=== PATIENT | female | born 1950 | race Caucasian/White ===

== ENCOUNTER → 2018-03-02 11:13 | Outpatient (CLI) | payer MEDICARE, OTHER, SELFPAY ==
--- NOTE | 2018-03-02 | DI.NM.S_ITS ---
PROCEDURE: NM PUL PERF VENT MIR DIF W IMAGE RADIOPHARMACEUTICAL: 39.5 mCi Tc-99m labeled DTPA aerosol and 9.8 mCi technetium 99m labeled MAA intravenously. INDICATIONS: PREOPERATIVE TESTING/HISTORY OF LUNG CANCER TECHNIQUE: After the intravenous administration of radiotracer, imaging of both lungs acquired in the anterior and posterior projections. Quantitative determination of tracer uptake was performed of the upper, middle, and lower lungs separately in both projections, with total average uptake derived from the geometric mean. COMPARISON: None. FINDINGS: Posterior perfusion over the upper/middle/lower thirds of the lungs bilaterally yields left versus right percent values of 11.5 versus 6.3, 28.8 versus 21.6 and 15.3 versus 16.4, respectively. Anterior perfusion over the upper/middle/lower thirds yields left versus right percent values of 18.4 versus 10.8, 27.0 versus 28.7, and 7.3 versus 7.9, respectively. Geometric mean over the upper/middle/lower thirds of the lungs bilaterally yields left versus right percent values of 15.0 versus 8.6, 28.0 versus 25.7 and 10.8 versus 11.8, respectively. Posterior ventilation over the upper/middle/lower thirds of the lungs bilaterally yields left versus right percent values of 10.3 versus 8.5, 23.2 versus 23.5, and 18.3 versus 18.7, respectively. Anterior ventilation over the upper/middle/lower thirds of the lungs bilaterally yields left versus right percent values of 14.7 versus 14.9, 21.6 versus 31.7 and 7.9 versus 9.8, respectively. Geometric mean or the upper/middle/lower thirds of the lungs bilaterally henning left versus right percent values of 12.5 versus 11.3, 22.4 versus 28.4, and 11.3 versus 14.1, respectively. IMPRESSION: There is asymmetric perfusion and ventilation over the lungs bilaterally with left greater than right perfusion differential of 53.9% on the left versus 46.1% on the right overall, with right greater than left ventilation differential of 46.3% on the left versus 53.7% on the right overall. Dictated by: Wan Morrison M.D. on 03/02/2018 at 16:03 Approved by: Wan Morrison M.D. on 03/02/2018 at 16:26
--- NOTE | 2018-03-06 07:40 | PM.PFT.1 ---
Pulmonary Function Test Referral & Results Date Patient Seen: 03/02/18 Indication: Lung cancer Results: The spirometry demonstrates an FVC of 2.13 L which is 66% of predicted. The FEV1 was measured at 1.72 L which is 70% of predicted. The FEV1/FVC ratio was 81 which is 104% of predicted. Following the administration of bronchodilator there was no appreciable change. Lung volumes show an SVC of 2.14 L which is 71% of predicted. The diffusing capacity was measured at 16.99 which is 68% of predicted. No hemoglobin value was provided, so no correction for potential anemia could be made, if appropriate. The maximum voluntary ventilation was reduced Interpretation: This study demonstrates moderate restrictive lung disease based on reduction FEV1 without evidence of benefit following bronchodilator There is also moderate restrictive lung disease based on reduction SVC The reduction in diffusing capacity is 60% of predicted also suggest moderate disease at the capillary alveolar level. Clinical correlation suggested
== END ==
PROVIDERS: PCP Family Medicine
DX: C34.90 Malignant neoplasm of unspecified part of unspecified bronchus or lung (principal); R93.89 Abnormal findings on diagnostic imaging of other specified body structures; Z01.818 Encounter for other preprocedural examination
CPT/HCPCS: 78598; 94010; 94060; 94726; 94729; A9539; A9540

== ENCOUNTER → 2020-10-13 14:53 | Outpatient (CLI) | payer MEDICARE, OTHER, SELFPAY ==
--- NOTE | 2020-10-13 | DI.US.S_ITS ---
PROCEDURE: US RENAL COMPLETE INDICATIONS: Dysuria TECHNIQUE: Real-time scanning was performed of the kidneys and bladder, with image documentation. COMPARISON: None. FINDINGS: Kidneys: Kidneys are normal in size. Right kidney measures 10.4 cm long; left kidney measures 10.7 cm long. Right renal cortical thickness is 1.8 cm; left renal cortical thickness is 1.8 cm. Renal cortical echotexture is normal. No hydronephrosis or nephrolithiasis. No suspicious solid mass lesions. Bladder: Pre-void bladder volume is 42 mL. Post-void residual is 0 mL. Pre-void images demonstrate no intraluminal masses or stones. On pre-void images, neither ureteral jets are noted with color Doppler interrogation. (Of note, ureteral jets may not be detectable in up to 25% of cases due to insufficient differences in specific gravity between ureteral and bladder urine). Miscellaneous: No free pelvic fluid. IMPRESSION: No hydronephrosis or nephrolithiasis found. Normal bladder function. No bladder calculus identified. Dictated by: Wan Morrison M.D. on 10/13/2020 at 17:03 Approved by: Wan Morrison M.D. on 10/13/2020 at 17:03
== END ==
PROVIDERS: PCP Family Medicine; Referring Provider Urology; Visit Provider Urology
DX: R30.0 Dysuria (principal)
CPT/HCPCS: 76770

== ENCOUNTER → 2022-02-22 18:39 | Outpatient (CLI) | payer MEDICARE, OTHER, SELFPAY ==
[2022-02-22 20:14] LABS: COVID19 -Nasal RAPID Negative (Negative)
== END ==
PROVIDERS: PCP Family Medicine; Visit Provider Student in an Organized Health Care Education/Training Program
DX: Z20.822 Contact with and (suspected) exposure to COVID-19 (principal)
CPT/HCPCS: 87635

== ENCOUNTER → 2022-02-22 19:10 | Outpatient (CLI) | payer MEDICARE, OTHER, SELFPAY ==
--- NOTE | 2022-02-22 19:13 | DI.RAD.S_ITS ---
PROCEDURE: XR CHEST 2V INDICATIONS: copd exacerbation vs pneumonia TECHNIQUE: 2 views of the chest were acquired. COMPARISON: [facility] [place], CR, XR SHOULDER 2+ VIEWS LEFT, 06/02/2019, 14:18. FINDINGS: Surgical changes and devices: ACDF. Cholecystectomy clips. Lungs and pleura: Prominent pulmonary markings. No consolidation. No pleural effusions or pneumothorax. Mediastinum: Mediastinal contours are normal. Heart size is normal. Bones and chest wall: No suspicious bony abnormalities. Soft tissues appear unremarkable. IMPRESSION: Prominent pulmonary markings. This could be seen in the setting of infectious/inflammatory etiology. Emphysematous change or pulmonary vasculature engorgement could have a similar appearance. Dictated by: Keven Farr M.D. on 02/22/2022 at 19:55 Approved by: Keven Farr M.D. on 02/22/2022 at 19:57
== END ==
PROVIDERS: PCP Family Medicine; Referring Provider Student in an Organized Health Care Education/Training Program; Visit Provider Student in an Organized Health Care Education/Training Program
DX: J44.1 Chronic obstructive pulmonary disease with (acute) exacerbation (principal); Z20.822 Contact with and (suspected) exposure to COVID-19
CPT/HCPCS: 71046; 87635